=== PATIENT | female | born 1950 | race Caucasian/White ===

== ENCOUNTER 2018-07-12 08:14 | Emergency (ER) | payer MEDICARE, OTHER ==
[~2018-07-12] VITALS: Ht 154.9 cm; Wt 66.0 kg
[~2018-07-12 08:14] MED LIST: AMIT25TA PO; CHOL400D3 PO; LANS30CA60 PO; MULT-257 PO; PRAV20TA2; UBID30CA9 PO; VITA1TAB19 PO
[2018-07-12 08:54] LABS: BASOPHILS # (AUTO) 0.01 x10^3/uL (0-0.1); BASOPHILS % (AUTO) 0 % (0-1); EOSINOPHILS # (AUTO) 0.18 x10^3/uL (0-0.4); EOSINOPHILS % (AUTO) 1 % (1-7); LYMPHOCYTES % (AUTO) 13 % (22-44); MD NO; MEAN CORPUSCULAR HGB CONC 33.8 g/dL (32.4-35.8); MEAN CORPUSCULAR VOLUME 91.8 fL (80-100); MEAN PLATELET VOLUME 8.4 fL (7.4-10.4); MONOCYTES # (AUTO) 0.43 x10^3/uL (0.2-0.8); MONOCYTES % (AUTO) 3 % (2-9); NEUTROPHILS # (AUTO) 11.95 x10^3/uL (1.8-6.8); NEUTROPHILS % (AUTO) 83 % (42-75); PLATELET COUNT 370 x10^3/uL (130-400); RED BLOOD COUNT 5.05 x10^6/uL (3.82-5.3); RED CELL DISTRIBUTION WIDTH 13.4 % (9.6-15.2)
[2018-07-12] MEDS ORDERED: SODIUM CHLORIDE FLUSH 10ML SYR IVF ONE (09:00)
[2018-07-12] MEDS ORDERED: PLEASE ENTER HEIGHT AND WEIGHT MC SCH (09:00)
[2018-07-12 09:02] LABS: ALBUMIN 3.5 g/dL (3.4-5.0); ANION GAP 8 mmol/L (5-15); CALCIUM 8.6 mg/dL (8.5-10.1); CHLORIDE 111 mmol/L (98-107); CREATININE 0.65 mg/dL (0.55-1.02)
[2018-07-12 09:06] LABS: TROPONIN I < 0.015 ng/mL (0.000-0.045)
[2018-07-12] MEDS ORDERED: KETOROLAC 30 MG/1 ML ONE (09:06)
[2018-07-12] MEDS ORDERED: KETOROLAC 30 MG/1 ML IVPush ONE (09:30)
[2018-07-12 10:36] LABS: TROPONIN I < 0.015 ng/mL (0.000-0.045)
[2018-07-12 11:04] VITALS: BP 121/73
== END 2018-07-12 11:35 | disposition home or self-care (01) ==
LOC: ED 08:54
DX: M94.0 Chondrocostal junction syndrome [Tietze] (principal); R09.1 Pleurisy; K21.9 Gastro-esophageal reflux disease without esophagitis; Z90.49 Acquired absence of other specified parts of digestive tract
CPT/HCPCS: 36415; 71045; 80048; 82040; 84484; 85025; 93005; 96374; 99284; J1885